=== PATIENT | female | born 1955 | race Caucasian/White ===

== ENCOUNTER → 2018-01-14 | Outpatient (CLI) | payer BC | END | disposition home or self-care (01) | LOC: KCIC US 10:36 | DX: N80.8 Other endometriosis (principal); Z90.710 Acquired absence of both cervix and uterus | CPT/HCPCS: 76830; 76856 ==

== ENCOUNTER → 2018-02-24 | Outpatient (CLI) | payer BC ==
[~2018-02-24] MED LIST: GADOBUTROL 10 MMOL/10 ML VIAL IV
[2018-02-24] MEDS: IOHEXOL 300 MG/ML 100ML VIAL. IV (09:22)
[2018-02-24] MEDS: IOHEXOL 240 MG/ML 50ML VIAL. PO (09:23)
== END | disposition home or self-care (01) ==
LOC: KCIC CT 07:54
DX: K57.30 Diverticulosis of large intestine without perforation or abscess without bleeding (principal); K76.89 Other specified diseases of liver; D73.4 Cyst of spleen; R20.8 Other disturbances of skin sensation
CPT/HCPCS: 74177; Q9966; Q9967